=== PATIENT | female | born 1955 | race Caucasian/White ===

== ENCOUNTER 2021-05-17 07:05 | Outpatient (CLI) | payer BC, SELFPAY ==
--- NOTE | ~2021-05-17 | MM_ITS ---
EXAMINATION: MM screening [place] [facility] BI w jorge l HISTORY: Screening mammogram TECHNIQUE: Craniocaudal and mediolateral oblique 3-D tomosynthesis images were obtained and synthetic 2-D images were generated. CAD analysis was submitted and interpreted. COMPARISON: 09/07/2018, 08/11/2017 BREAST PARENCHYMAL COMPOSITION: The breasts are almost entirely fatty. FINDINGS: Stable bilateral benign breast masses are again noted. There is no evidence of suspicious m ass, calcification, or architectural distortion to suggest malignancy in either breast. There has bee n no suspicious interval change. IMPRESSION: 1. No mammographic evidence of malignancy. 2. Recommend routine screening mammography in one year. BI-RADS Category 2: Benign finding(s). Reviewed, dictated and finalized at location A.
== END 2021-05-17 07:06 | disposition home or self-care (01) ==
PROVIDERS: PCP Family Medicine; Visit Provider Family Medicine
DX: Z12.31 Encounter for screening mammogram for malignant neoplasm of breast (principal)
CPT/HCPCS: 77063; 77067

== ENCOUNTER 2022-05-20 07:45 | Outpatient (CLI) | payer BC, SELFPAY ==
--- NOTE | 2022-05-28 14:07 | WPDHOMESLEEP ---
Sleep Study - Home Unattended Date of Study: 05/20/22 Ordering Provider: Sri Aleman DO Interpreting Provider: Shireen Yeung MD Home Sleep Study Type: Apnea Link Air Height: 1.57 m Weight: 108.862 kg Body Mass Index: 43.9 Neck Circumference (inches): 18.5 Wittmann: 18 Reason for Sleep Study Non-restorative sleep, excessive daytime fatigue Sleep History Cody Randall is a 66-year-old female who has had years of non-restorative sleep with daily fatigue. She has difficulty getting to sleep as well as staying asleep. She wakes up throughout the night. She does not have trouble sleeping with a cold or wake up gasping for breath at night. She does not have breathing problems at night other than snoring. She does not sweat excessively at night or notice her heart pounding or beating irregularly at night. She frequently falls asleep during the day but never involuntarily or while driving. She does not have loss of muscle tone with strong emotion. She frequently has daytime difficulties due to excessive sleepiness. She does not feel paralyzed on waking or falling asleep nor does she have vivid dreamlike scenes upon awakening or falling asleep. She does not feel afraid to go to sleep. She rarely has nightmares. She rarely remembers her dreams. She occasionally has racing thoughts. She rarely feels sad or depressed. She occasionally has anxiety. She frequently has muscular tension. She does not notice parts of her body jerking. She does not kick at night. She frequently has crawling and aching feelings in her legs and leg pain at night. She does not have morning jaw pain. She does not grind her teeth during sleep. She denies having pain during the day or being awakened by pain at night. She does not wake up feeling stiff in the morning with sore achy muscles or pain in the neck and spine. She has hypertension, diabetes and hyperlipidemia. Normal bedtime is 10:00 p.m. falling asleep within 20 to 30 minutes, typically waking 2-3 times at night to urinate, and returning to sleep within 5 - 10 minutes. Her wake-up time varies. On the weekends, bedtime is 11:00 p.m. and she wakes at 7:00 a.m.. She estimates getting between 6 and 7 hours of sleep normally. She does work some split shifts. She does not take naps in the afternoon or evening. A short nap lasting 10 or 15 minutes is not refreshing. She is usually drowsy in the morning on waking. She feels better in the morning compared to other times of day. Habits: Quit tobacco 35 years ago. No caffeine, alcohol or recreational drugs. [facility] Past Medical History Medical History (Updated 05/28/22 @ 14:15 by Shireen Yeung MD) Arthritis of hand, left, degenerative Dupuytren's contracture of hand Essential (primary) hypertension Mixed hyperglyceridemia Trigger finger, left middle finger Type 2 diabetes mellitus with complication, without long-term current use of insulin Surgical History Surgical History H/O section 1989 Family History Family History Father Family history of cardiovascular disease Other Family history of malignant neoplasm Social History Social History Smoking status: Former smoker Smoking end date: 08/16/94 Alcohol intake: current Substance use type: does not use Gender identity (if verbalized by the patient): Female Medications Home Medications Medication Instructions Recorded Confirmed Type atorvastatin 40 mg tablet 20 mg PO DAILY #30 tabs 11/04/21 05/12/22 Rx losartan 100 mg tablet 100 mg PO DAILY #90 tabs 05/03/22 05/12/22 Rx metformin 500 mg tablet 500 mg PO BIDWMEAL #180 tabs 05/03/22 05/12/22 Rx Sleep Procedure This test was performed using 4 channel monitoring including respiratory effort channel, snoring channel, heart rate haji
[2022-05-28 14:20] VITALS: BMI 43.9
== END 2022-05-21 13:41 | disposition home or self-care (01) ==
PROVIDERS: PCP Family Medicine; Visit Provider Family Medicine
DX: G47.33 Obstructive sleep apnea (adult) (pediatric) (principal); G47.10 Hypersomnia, unspecified; Z68.41 Body mass index [BMI] 40.0-44.9, adult
CPT/HCPCS: 95806

== ENCOUNTER → 2022-06-09 11:26 | Outpatient (CLI) | payer BC, SELFPAY ==
--- NOTE | ~2022-06-09 | XR_ITS ---
XR chest 2V 06/09/2022 11:38 Indication: Idiopathic sleep disorder Procedure: 2 view chest Comparison: No prior studies for comparison. Findings: Heart size is normal. No focal air space disease, pulmonary edema, pleural effusion or susp ected pneumothorax. No acute osseous abnormality. Impression: 1: No acute cardiopulmonary disease. Reviewed, dictated and finalized at location B. Impression: 1: No acute cardiopulmonary disease.
== END ==
PROVIDERS: PCP Family Medicine; Visit Provider Family Medicine
DX: G47.34 Idiopathic sleep related nonobstructive alveolar hypoventilation (principal)
CPT/HCPCS: 71046

== ENCOUNTER 2022-06-17 14:28 | Outpatient (CLI) | payer BC, SELFPAY ==
--- NOTE | 2022-06-18 09:41 | WPDPFTINT ---
PFT Procedure Performed PFT Procedure Performed Spirometry with Pre/Post Bronchodilator Plethysmography (Lung Vol) Diffusing Cap (DLCO) Flow Vol Loop PFT Interpretation Lung volumes were measured with the body plethysmography method. The diminished across the board lung volumes are indicative of restrictive respiratory disease. The normal residual volume in this setting may indicate underlying neuromuscular weakness. Clinical correlation advised. Spirometry showed diminished expiratory flow rates and a normal FEV1 to FVC ratio of 80%, also consistent with a restrictive respiratory disease. Following administration of a bronchodilator there was no significant increase in the expiratory flow rates. Lung diffusion capacity is borderline normal at 71% predicted. The flow volume loop is consistent with restrictive respiratory disease. Impression: Moderate restrictive respiratory disease. Borderline normal lung diffusion capacity.
== END 2022-06-17 14:29 | disposition home or self-care (01) ==
LOC: ANHPFT 14:31
PROVIDERS: PCP Family Medicine; Visit Provider Family Medicine
DX: R06.00 Dyspnea, unspecified (principal); R94.2 Abnormal results of pulmonary function studies
CPT/HCPCS: 94060; 94726; 94729

== ENCOUNTER → 2022-07-02 08:16 | Outpatient (CLI) | payer BC, SELFPAY ==
--- NOTE | ~2022-07-02 | CT_ITS ---
EXAMINATION: CT diagnostic chest wo con DATE: 07/02/2022 08:31 INDICATION: Severe nocturnal hypoxemia. Abnormal pulmonary function tests, restrictive lung disease TECHNIQUE: Computed tomography (CT) of the chest was performed without intravenous contrast. Automate d exposure control and iterative reconstruction technique were employed. Exam dose: 616.69 mGy-cm to meseret exam DLP. COMPARISON: 06/09/2022 2 view chest FINDINGS: There are occasional nonspecific scattered bilateral small focal groundglass infiltrates in the lungs. Consider mild pneumonia or atypical infection or inflammatory process. No hilar or mediastinal mass lesion or lymphadenopathy. Normal heart size. No pericardial effusion or pleural effusion. Thoracic aortic calcification. Small sliding hiatal hernia. Normal morphology of the adrenal glands. Diffuse idiopathic skeletal hyperostosis of the thoracic spine. No suspicious osteolytic or osteoblas tic lesions are noted. IMPRESSION: Scattered bilateral small focal nonspecific groundglass infiltrates Reviewed, dictated and finalized at Location A. Reviewed, dictated and finalized at location B. [employer]UTTER OPERATOR IMPRESSION: Scattered bilateral small focal nonspecific groundglass infiltrate s
== END ==
PROVIDERS: PCP Family Medicine; Visit Provider Family Medicine
DX: R09.02 Hypoxemia (principal); R94.2 Abnormal results of pulmonary function studies; J98.4 Other disorders of lung; R91.8 Other nonspecific abnormal finding of lung field
CPT/HCPCS: 71250

== ENCOUNTER 2022-07-07 08:09 | Outpatient (CLI) | payer BC, SELFPAY ==
--- NOTE | 2022-07-28 16:07 | WPDSLEEPSTUD ---
Sleep Study Date of Study: 07/07/22 Ordering Provider: Sri Aleman DO Interpreting Physician: Sri Aleman DO Sleep Study Type: BiPAP Titration Height: 1.57 m Weight: 108.862 kg Body Mass Index: 43.9 Neck Circumference (inches): 19 Verdi: 15 Reason for Sleep Study The patient had an ApneaLink on 05/20/2022 that showed an apnea-hypopnea index of 14.8 with desaturation down to 61% with snoring. Sleep History Fide Randall is a? 66-year-old female who has had years of non-restorative sleep with daily fatigue.? She has difficulty getting to sleep as well as staying asleep.? She wakes up throughout the night.? She does not have trouble sleeping with a cold or wake up gasping for breath at night.? She does not have breathing problems at night other than snoring.? She does not sweat excessively at night or notice her heart pounding or beating irregularly at night.? She frequently falls asleep during the day but never involuntarily or while driving.? She does not have loss of muscle tone with strong emotion.? She frequently has daytime difficulties due to excessive sleepiness.? She does not feel paralyzed on waking or falling asleep nor does she have vivid dreamlike scenes upon awakening or falling asleep.? She does not feel afraid to go to sleep.? She rarely has nightmares.? She rarely remembers her dreams.? She occasionally has racing thoughts.? She rarely feels sad or depressed.? She occasionally has anxiety.? She frequently has muscular tension.? She does not notice parts of her body jerking.? She does not kick at night.? She frequently has crawling and aching feelings in her legs and leg pain at night.? She does not have morning jaw pain.? She does not grind her teeth during sleep.? She denies having pain during the day or being awakened by pain at night.? She does not wake up feeling stiff in the morning with sore achy muscles or pain in the neck and spine. She has hypertension, diabetes and hyperlipidemia. Normal bedtime is 10:00 p.m. falling asleep within 20 to 30 minutes, typically waking 2-3 times at night to urinate, and returning to sleep within 5 - 10 minutes.? Her wake-up time varies.? On the weekends, bedtime is 11:00 p.m. and she wakes at 7:00 a.m..? She estimates getting between 6 and 7 hours of sleep normally.? She does work some split shifts.? She does not take naps in the afternoon or evening.? A short nap lasting 10 or 15 minutes is not refreshing.? She is usually drowsy in the morning on waking.? She feels better in the morning compared to other times of day. Habits:?Quit tobacco 35 years ago.? No caffeine, alcohol or recreational drugs. [facility] Past Medical History Medical History Arthritis of hand, left, degenerative Dupuytren's contracture of hand Essential (primary) hypertension Mixed hyperglyceridemia Trigger finger, left middle finger Type 2 diabetes mellitus with complication, without long-term current use of insulin Surgical History Surgical History H/O section 1989 Family History Family History Father Family history of cardiovascular disease Other Family history of malignant neoplasm Social History Social History Smoking status: Former smoker Smoking end date: 08/16/94 Alcohol intake: current Substance use type: does not use Gender identity (if verbalized by the patient): Female Medications Home Medications Medication Instructions Recorded Confirmed Type atorvastatin 40 mg tablet 20 mg PO DAILY #30 tabs 11/04/21 05/12/22 Rx losartan 100 mg tablet 100 mg PO DAILY #90 tabs 05/03/22 05/12/22 Rx metformin 500 mg tablet 500 mg PO BIDWMEAL #180 tabs 05/03/22 05/12/22 Rx ergocalciferol (vitamin D2) 1,250 1,250 mcg PO WEEKLY #13 caps 06/22/22 Rx
[2022-07-28 17:39] VITALS: BMI 43.9
== END 2022-07-08 06:15 | disposition home or self-care (01) ==
LOC: ANHCSM 08:10
PROVIDERS: PCP Family Medicine; Visit Provider Family Medicine
DX: G47.33 Obstructive sleep apnea (adult) (pediatric) (principal); I10 Essential (primary) hypertension; E78.3 Hyperchylomicronemia; E11.9 Type 2 diabetes mellitus without complications; Z87.891 Personal history of nicotine dependence
CPT/HCPCS: 95811

== ENCOUNTER 2022-08-05 08:09 | Outpatient (CLI) | payer BC, SELFPAY ==
--- NOTE | 2022-08-05 13:52 | WPDSIXMINUTE ---
Six Minute Walk Procedure Procedure Performed Pulmonary Stress Test (6 min walk) Six Minute Walk Six Minute Walk: This is a 6 minute walk test. The test was performed and interpreted in accordance with the 2014 ERS/ATS task force guidelines. Findings: The patient's resting room air oxygen saturation measured by pulse oximetry was 95% and heart rate was 61 bpm. Patient ambulated for 305 meters and oxygen saturation remained 91 to 93%. Heart rate at the end of the study was 98 bpm. The patient did not qualify for supplemental oxygen at rest or with ambulation. There are no prior studies for comparison.
== END 2022-08-05 08:10 | disposition home or self-care (01) ==
LOC: ANHPFT 08:11
PROVIDERS: PCP Family Medicine; Visit Provider Family Medicine
DX: R06.09 Other forms of dyspnea (principal); J98.4 Other disorders of lung
CPT/HCPCS: 94618

== ENCOUNTER 2022-10-05 08:35 | Outpatient (CLI) | payer OTHER, SELFPAY ==
--- NOTE | 2022-10-05 08:39 | EST_ITS ---
Patient Info Name: Fide Randall Age: 67 years : 1955 Gender: Female Ht: 62 in Wt: 240 lbs BSA: 2.25 m2 HR: 62 bpm BP: 146 / 61 mmHg Heart Rhythm: Sinus Rhythm Exam Date: 10/05/2022 8:53 AM Exam Location: [facility] Stress Patient Status: Outpatient Admit Date: 10/05/2022 Staff Ordering Physician: Sri Aleman DO Attending Provider: Sri Aleman DO Exercise Technologist: Magali Funez CT Exercise Physician: Luiz Metzger DO Exam Type: CA stress test treadmill Study Info Indications R06.09 - Other forms of dyspnea A treadmill exercise stress test was performed. Summary 1. 1. Negative Juan Jose exercise stress test for ischemic ST changes by ECG criteria. 2. 2. Reduced functional capacity, achieving 6.8 METs of workload. 3. 3. Baseline hypertension with hypertensive response to exercise. 4. 4. Appropriate HR response to exercise. 5. 5. Appropriate HR recovery at 1 minute post exercise. 6. 6. No imaging with stress testing. 7. 7. Patient informed of the above results. Protocol: Juan Jose Stress ECG Details Stage: REST Duration (min): 1 min : 4 sec Speed (mph): 0.0 Grade (%): 0 HR (bpm): 64 SBP (mmHg): 146 DBP (mmHg): 61 METS: --- Stage: REST Duration (min): 6 min : 26 sec Speed (mph): 0.0 Grade (%): 0 HR (bpm): 69 SBP (mmHg): 146 DBP (mmHg): 61 METS: --- Stage: STAGE 1 Duration (min): 1 min : 0 sec Speed (mph): 1.7 Grade (%): 10 HR (bpm): 103 SBP (mmHg): 146 DBP (mmHg): 61 METS: --- Stage: STAGE 1 Duration (min): 2 min : 0 sec Speed (mph): 1.7 Grade (%): 10 HR (bpm): 121 SBP (mmHg): 146 DBP (mmHg): 61 METS: --- Stage: STAGE 1 Duration (min): 3 min : 0 sec Speed (mph): 1.7 Grade (%): 10 HR (bpm): 127 SBP (mmHg): 198 DBP (mmHg): 73 METS: --- Stage: STAGE 2 Duration (min): 1 min : 0 sec Speed (mph): 2.5 Grade (%): 12 HR (bpm): 143 SBP (mmHg): 198 DBP (mmHg): 73 METS: --- Stage: STAGE 2 Duration (min): 1 min : 14 sec Speed (mph): 2.5 Grade (%): 12 HR (bpm): 147 SBP (mmHg): 198 DBP (mmHg): 73 METS: --- Stage: RECOVERY Duration (min): 0 min : 45 sec Speed (mph): 0.0 Grade (%): 0 HR (bpm): 137 SBP (mmHg): 215 DBP (mmHg): 57 METS: --- Stage: RECOVERY Duration (min): 1 min : 45 sec Speed (mph): 0.0 Grade (%): 0 HR (bpm): 104 SBP (mmHg): 215 DBP (mmHg): 57 METS: --- Stage: RECOVERY Duration (min): 2 min : 45 sec Speed (mph): 0.0 Grade (%): 0 HR (bpm): 90 SBP (mmHg): 215 DBP (mmHg): 57 METS: --- Stage: RECOVERY Duration (min): 3 min : 14 sec Speed (mph): 0.0 Grade (%): 0 HR (bpm): 87 SBP (mmHg): 181 DBP (mmHg): 65 METS: --- Rest HR: 69 bpm Peak HR: 148 bpm Rest Sys BP: 146 mmHg Peak Sys BP: 215 mmHg Max Pred HR: 155 bpm % Max Pred HR: 95 % Target
== END 2022-10-05 08:36 | disposition home or self-care (01) ==
LOC: ANHCARD 08:36
PROVIDERS: PCP Family Medicine; Visit Provider Family Medicine
DX: R06.00 Dyspnea, unspecified (principal)
CPT/HCPCS: 93017

== ENCOUNTER 2023-04-26 00:49 | Day surgery (SDC) | payer OTHER, SELFPAY ==
[2023-03-17 13:42] VITALS: BMI 41.1
[2023-04-12 15:26] VITALS: BMI 41.1
--- NOTE | 2023-04-26 08:24 | WPDANESEPPF ---
Anes - Initial Pre Proc Eval Procedure: Operation Date: 04/26/23 11:30 Proposed Procedures p Colonoscopy - Darryl Arenas MD Date/Time: 04/26/23 08:24 Surgeon: Darryl Arenas MD Pre Op Diagnosis: neoplasia screening Patient Data Age: 67 Gender: F Height: 1.57 m Weight: 102 kg Allergies Allergy/AdvReac Type Severity Reaction Status Date / Time Sulfa (Sulfonamide Allergy Severe RASH Verified 04/26/23 10:05 Antibiotics) lisinopril Allergy Unknown cough Verified 04/26/23 10:05 potassium iodide Allergy Unknown cough Verified 04/26/23 10:05 sulfamethizole Allergy Unknown Skin Verified 04/26/23 10:05 Reaction sulfite Allergy Unknown rash Verified 04/26/23 10:05 Home Medications Medication Instructions Recorded Confirmed Type metformin 500 mg tablet 500 mg PO BIDWMEAL #180 tabs 11/06/22 04/26/23 Rx atorvastatin 40 mg tablet 20 mg PO DAILY #45 tabs 12/22/22 04/26/23 Rx nirmatrelvir 300 mg (150 mg See Rx Instructions PO .COMPLEX 04/19/23 04/26/23 Rx x2)-ritonavir 100 mg tablet,dose #30 ea pack (Paxlovid) losartan 100 mg tablet 100 mg PO DAILY #90 tabs 04/23/23 04/26/23 Rx Patient hx anesthesia problems: none Family hx anesthesia problems: none Results Review: All pre-operative results and documents have been reviewed as part of the pre-operative evaluation. [facility] Past Medical History Medical History (Updated 04/26/23 @ 10:16 by Darryl Arenas MD) Arthritis of hand, left, degenerative Dupuytren's contracture of hand Essential (primary) hypertension Mixed hyperglyceridemia YEN (obstructive sleep apnea) Trigger finger, left middle finger Type 2 diabetes mellitus with complication, without long-term current use of insulin Surgical History Surgical History H/O section 1989 Family History Family History Father Family history of cardiovascular disease Other Family history of malignant neoplasm Social History Social History Smoking packs per day: 1 Smoking cigarettes per day: 20.0 Years smoked: 20 Smoking pack-years: 20.00 Smoking status: Former smoker Smoking end date: 08/16/94 Alcohol intake: never Substance use: never Substance use type: does not use Lack of Transportation: No Lack of Food: Never True Current Housing: I Have Housing Concerned About Future Housing: No Difficulty Paying Gas/Electric Bills: No Difficulty Paying for Meds: No Currently Unemployed: No Education: High School Diploma/GED Difficulty w/ Childcare or Family Care: No Living arrangements: with family Occupation/Education: occupation Gender identity (if verbalized by the patient): Female Spiritual care concerns: No Anes - Eval Final PreProcedure Day of Procedure 04/26/23 08:24 Patient weight: morbidly obese Heart: regular rate and rhythm Lungs: clear to auscultation Airway: Mallampati scale class II Neurological: alert and oriented Last oral intake: >/= 8 hours ASA classification: III Emergent: no Anesthetic plan: proceed Anesthesia type and monitoring: general GIVS and standard monitoring Results Review: All pre-operative results and documents have been reviewed as part of the pre-operative evaluation. Informed Consent: The patient's anesthetic plan and its attendant risks and benefits were discussed with the patient/family/POA. Questions were solicited and answers provided to the satisfaction of the patient/family/POA.
[2023-04-26 10:07] VITALS: BP 139/64; PULSE 74; RESP 17; TEMP 36.2; O2SAT 94; BMI 42.5
--- NOTE | 2023-04-26 10:15 | PM.HPGS ---
History of Present Illness History of Present Illness Consent: Risks, benefits, and alternatives have been discussed and questions answered. Patient agrees to proceed with procedure. Chief complaint: neoplasia screening Narrative: Fide Randall is a 67 year old female Presents for screening colonoscopy. Patient's current weight appetite and bowel movements are normal. Patient denies abdominal pain. She has had no bleeding. Family history noncontributory. Previous colonoscopy 2018 revealed a benign inflammatory polyp not felt to have cancer risk. Review of Systems Review of Systems: Review of systems noncontributory. [facility] Past Medical History Medical History (Updated 04/26/23 @ 10:16 by Darryl Arenas MD) Arthritis of hand, left, degenerative Dupuytren's contracture of hand Essential (primary) hypertension Mixed hyperglyceridemia YEN (obstructive sleep apnea) Trigger finger, left middle finger Type 2 diabetes mellitus with complication, without long-term current use of insulin Surgical History Surgical History H/O section 1989 Family History Family History Father Family history of cardiovascular disease Other Family history of malignant neoplasm Social History Social History Smoking packs per day: 1 Smoking cigarettes per day: 20.0 Years smoked: 20 Smoking pack-years: 20.00 Smoking status: Former smoker Smoking end date: 08/16/94 Alcohol intake: never Substance use: never Substance use type: does not use Lack of Transportation: No Lack of Food: Never True Current Housing: I Have Housing Concerned About Future Housing: No Difficulty Paying Gas/Electric Bills: No Difficulty Paying for Meds: No Currently Unemployed: No Education: High School Diploma/GED Difficulty w/ Childcare or Family Care: No Living arrangements: with family Occupation/Education: occupation Gender identity (if verbalized by the patient): Female Spiritual care concerns: No Meds Home Medications and Allergies Home Medications Medication Instructions Recorded Confirmed Type metformin 500 mg tablet 500 mg PO BIDWMEAL #180 tabs 11/06/22 04/26/23 Rx atorvastatin 40 mg tablet 20 mg PO DAILY #45 tabs 12/22/22 04/26/23 Rx nirmatrelvir 300 mg (150 mg See Rx Instructions PO .COMPLEX 04/19/23 04/26/23 Rx x2)-ritonavir 100 mg tablet,dose #30 ea pack (Paxlovid) losartan 100 mg tablet 100 mg PO DAILY #90 tabs 04/23/23 04/26/23 Rx Allergies Allergy/AdvReac Type Severity Reaction Status Date / Time Sulfa (Sulfonamide Allergy Severe RASH Verified 04/26/23 10:05 Antibiotics) lisinopril Allergy Unknown cough Verified 04/26/23 10:05 potassium iodide Allergy Unknown cough Verified 04/26/23 10:05 sulfamethizole Allergy Unknown Skin Verified 04/26/23 10:05 Reaction sulfite Allergy Unknown rash Verified 04/26/23 10:05 Exam Narrative: Physical exam reveals patient to be alert. Vital signs stable. HEENT exam is unremarkable. Patient is anicteric. Lungs are clear to auscultation and percussion. Heart is without murmur or extra sounds. Abdomen bowel sounds are present soft nontender with no organomegaly. Digital external rectal exam is normal. Assessment and Plan Assessment and plan (1) Encounter for screening colonoscopy: Code(s): Z12.11 - Encounter for screening for malignant neoplasm of colon Status: Acute Assessment and Plan: Patient presents today for screening colonoscopy. She appears to be at average risk for colon polyps. Further recommendations may be given after endoscopy.
[2023-04-26 10:28] LABS: Glucose Point of Care 126 mg/dl (65-105)
[2023-04-26] MEDS: LACTATED RINGERS 1,000 ML 150 ML IV CONT (10:45)
[2023-04-26 11:46] VITALS: BP 115/44; PULSE 69; RESP 24; O2SAT 94
[2023-04-26 11:56] VITALS: BP 117/48; PULSE 61; RESP 25; O2SAT 94
[2023-04-26 12:06] VITALS: BP 131/48; PULSE 59; RESP 20; O2SAT 97
== END 2023-04-26 12:14 | disposition home or self-care (01) ==
PROVIDERS: PCP Family Medicine; Visit Provider Internal Medicine Gastroenterology
PROC: 0DJD8ZZ Inspection of Lower Intestinal Tract, Via Natural or Artificial Opening Endoscopic (ICD-10-PCS; CPT 45378; principal; 2023-04-26 11:30)
DX: Z12.11 Encounter for screening for malignant neoplasm of colon (principal); K64.8 Other hemorrhoids; K57.30 Diverticulosis of large intestine without perforation or abscess without bleeding; I10 Essential (primary) hypertension; E78.2 Mixed hyperlipidemia; G47.33 Obstructive sleep apnea (adult) (pediatric); E11.8 Type 2 diabetes mellitus with unspecified complications; Z87.891 Personal history of nicotine dependence; Z79.84 Long term (current) use of oral hypoglycemic drugs; E66.01 Morbid (severe) obesity due to excess calories; Z68.41 Body mass index [BMI] 40.0-44.9, adult
CPT/HCPCS: 45378; 82948; J2704; J7120

== ENCOUNTER 2023-09-09 08:10 | Emergency (ER) | payer OTHER, SELFPAY ==
--- NOTE | 2023-09-09 08:13 | ED.FEMALEGU ---
HPI - Female Genitourinary General Chief complaint: Urogenital-Female Stated complaint: Uti symptoms Time Seen by Provider: 09/09/23 08:36 Source: patient, RN notes reviewed and old records reviewed Mode of arrival: ambulatory Limitations: no limitations History of Present Illness HPI Narrative: 67-year-old female presents to the [facility] with complaints of frequency, urgency, pain and burning that started with urination at 5:00 a.m. this morning. On Wednesday she did get Botox injected into her bladder by a urologist. Was given 1 pill of an antibiotic. Onset (ago): hour(s) (3) Related Data Allergies Allergy/AdvReac Type Severity Reaction Status Date / Time Sulfa (Sulfonamide Allergy Severe RASH Verified 04/26/23 10:05 Antibiotics) lisinopril Allergy Unknown cough Verified 04/26/23 10:05 potassium iodide Allergy Unknown cough Verified 04/26/23 10:05 sulfamethizole Allergy Unknown Skin Verified 04/26/23 10:05 Reaction sulfite Allergy Unknown rash Verified 04/26/23 10:05 Review of Systems Review of Systems: All systems reviewed & are unremarkable except as noted in HPI and below Constitutional: Constitutional: Reports no additional constitutional complaints Eyes: Eyes: Reports no additional eye complaints ENT: Reports system reviewed and no additional complaints, except as documented Cardiovascular: Cardiovascular: Reports no additional cardiovascular complaints, Denies chest pain and Denies dyspnea Respiratory: Respiratory: Reports no additional respiratory complaints, Denies chest congestion, Denies cough and Denies dyspnea Gastrointestinal: Gastrointestinal: Reports no additional gastrointestinal complaints, Denies abdominal pain, Denies nausea and Denies vomiting Genitourinary: Genitourinary: Reports as per HPI Musculoskeletal: Musculoskeletal: Reports no additional musculoskeletal complaints Integumentary/Breasts: Skin/Breast: Reports system reviewed and no additional complaints, except as docu Neurologic: Reports system reviewed and no additional complaints, except as documented Psychiatric: Psychiatric: Reports no additional psychiatric complaints Allergic/Immunologic: Allergic/Immunologic: Reports no additional allergic/immunologic complaints [facility] Past Medical History Medical History (Updated 09/09/23 @ 08:48 by Mar Pitts APRN) Arthritis of hand, left, degenerative Dupuytren's contracture of hand Essential (primary) hypertension Mixed hyperglyceridemia YEN (obstructive sleep apnea) Other hyperlipidemia Trigger finger, left middle finger Type 2 diabetes mellitus with complication, without long-term current use of insulin Surgical History Surgical History H/O section 1989 Family History Family History Father Family history of cardiovascular disease Other Family history of malignant neoplasm Social History Social History Smoking packs per day: 1 Smoking cigarettes per day: 20.0 Years smoked: 20 Smoking pack-years: 20.00 Smoking status: Former smoker Smoking end date: 08/16/94 Alcohol intake: never Substance use: never Substance use type: does not use Lack of Transportation: No Lack of Food: Never True Current Housing: I Have Housing Concerned About Future Housing: No Difficulty Paying Gas/Electric Bills: No Difficulty Paying for Meds: No Currently Unemployed: No Education: High School Diploma/GED Difficulty w/ Childcare or Family Care: No Living arrangements: with family Occupation/Education: occupation Gender identity (if verbalized by the patient): Female Spiritual care concerns: No Comments At the time of my signature, I reviewed and agree with the nursing past medical, surgical, social, and family history. There is no relevant family history pertin
[2023-09-09 08:24] VITALS: BP 150/73; PULSE 79; RESP 16; TEMP 36.4; O2SAT 95
[2023-09-09 08:25] VITALS: BP 150/73; PULSE 79; RESP 16; TEMP 36.4; O2SAT 95
== END 2023-09-09 08:55 | disposition home or self-care (01) ==
PROVIDERS: Emergency Provider Nurse Practitioner; PCP Family Medicine
DX: N30.01 Acute cystitis with hematuria (principal); E11.9 Type 2 diabetes mellitus without complications; E78.5 Hyperlipidemia, unspecified; I10 Essential (primary) hypertension; Z87.891 Personal history of nicotine dependence
CPT/HCPCS: 81003; 87086; 99213; G0463

== ENCOUNTER 2023-10-11 17:44 | Emergency (ER) | payer OTHER, SELFPAY ==
[2023-10-11 17:52] VITALS: BP 140/87; PULSE 67; RESP 16; TEMP 36.3; O2SAT 96
--- NOTE | 2023-10-11 18:41 | ED.FEMALEGU ---
HPI - Female Genitourinary General Chief complaint: Urogenital-Female Stated complaint: Uti Symptoms Time Seen by Provider: 10/11/23 18:20 Source: patient, RN notes reviewed and old records reviewed Mode of arrival: ambulatory Limitations: no limitations History of Present Illness HPI Narrative: Patient presents today complaining of frequency and lower abdominal pressure since last night. Denies dysuria, hematuria. Reports frequent UTIs. Patient gets Botox for overactive bladder. She has been taking some cranberry pills. Related Data Allergies Allergy/AdvReac Type Severity Reaction Status Date / Time Sulfa (Sulfonamide Allergy Severe RASH Verified 10/11/23 17:54 Antibiotics) lisinopril Allergy Unknown cough Verified 10/11/23 17:54 potassium iodide Allergy Unknown cough Verified 10/11/23 17:54 sulfamethizole Allergy Unknown Skin Verified 10/11/23 17:54 Reaction sulfite Allergy Unknown rash Verified 10/11/23 17:54 Review of Systems Review of Systems: CONSTITUTIONAL: Denies body aches, fever, chills, or sweats. EYES: Denies visual changes, redness, or discharge. ENT: Denies rhinorrhea, congestion, sore throat, or otalgia. CARDIOVASCULAR: Denies chest pain, palpitations, or edema. RESPIRATORY: Denies cough or dyspnea. GASTROINTESTINAL: Denies abdominal pain, nausea, vomiting, or diarrhea. GENITOURINARY: Denies dysuria or hematuria.+ urinary frequency and lower abdominal pressure SKIN: Denies rash, itching, or wounds. MUSCULOSKELETAL: Denies back pain, joint pain, or myalgia. NEUROLOGIC: Denies headache, numbness, tingling, or weakness. PSYCH: Denies depression or anxiety. [facility] Past Medical History Medical History Arthritis of hand, left, degenerative Dupuytren's contracture of hand Essential (primary) hypertension Mixed hyperglyceridemia YEN (obstructive sleep apnea) Other hyperlipidemia Trigger finger, left middle finger Type 2 diabetes mellitus with complication, without long-term current use of insulin Surgical History Surgical History H/O section 1989 Family History Family History Father Family history of cardiovascular disease Other Family history of malignant neoplasm Social History Social History Smoking packs per day: 1 Smoking cigarettes per day: 20.0 Years smoked: 20 Smoking pack-years: 20.00 Smoking status: Former smoker Smoking end date: 08/16/94 Alcohol intake: never Substance use: never Substance use type: does not use Do You Feel Safe in your Home?: Yes Lack of Transportation: No Lack of Food: Never True Current Housing: I Have Housing Concerned About Future Housing: No Difficulty Paying Gas/Electric Bills: No Difficulty Paying for Meds: No Currently Unemployed: No Education: High School Diploma/GED Difficulty w/ Childcare or Family Care: No Living arrangements: with family Occupation/Education: occupation Gender identity (if verbalized by the patient): Female Spiritual care concerns: No Comments At time of signature, I have reviewed and agree with nursing past medical, surgical, social and family history unless otherwise noted. Please see nursing chart for further information. There is no relevant family history pertinent to the presenting complaint Exam Narrative: GENERAL: Well-appearing, well-nourished, and in no acute distress. HEAD: Normocephalic, atraumatic. EYES: EOMI. No redness or drainage. Conjunctivae normal. ENT: Mucous membranes pink and moist. NECK: Normal AROM. CHEST: No respiratory distress. Clear to auscultation. HEART: Regular rate and rhythm. No murmur appreciated. Normal peripheral pulses. ABDOMEN: Soft, nontender, nondistended, normal active bowel
== END 2023-10-11 18:48 | disposition home or self-care (01) ==
PROVIDERS: Emergency Provider Nurse Practitioner; PCP Family Medicine
DX: N30.01 Acute cystitis with hematuria (principal); B96.89 Other specified bacterial agents as the cause of diseases classified elsewhere; I10 Essential (primary) hypertension; E78.3 Hyperchylomicronemia; E78.49 Other hyperlipidemia; E11.9 Type 2 diabetes mellitus without complications; Z79.84 Long term (current) use of oral hypoglycemic drugs; M19.042 Primary osteoarthritis, left hand; Z87.891 Personal history of nicotine dependence
CPT/HCPCS: 81003; 87077; 87086; 87186; 99213; G0463

== ENCOUNTER 2023-10-27 18:45 | Emergency (ER) | payer OTHER, SELFPAY ==
[2023-10-27 18:55] VITALS: BP 112/66; PULSE 76; RESP 18; TEMP 36.9; O2SAT 95
--- NOTE | 2023-10-27 19:15 | ED.GENADULT ---
HPI - General Adult General Chief complaint: Urogenital-Female Stated complaint: Urinary Problems Source: patient, RN notes reviewed and old records reviewed Mode of arrival: ambulatory Limitations: no limitations History of Present Illness HPI narrative: 68-year-old female presents to [facility] with complaints of urinary frequency, urinary urgency, constant urge to urinate, and dysuria that started this a.m.. Patient states gets frequent UTIs. Patient denies abdominal pain or back pain. Related Data Allergies Allergy/AdvReac Type Severity Reaction Status Date / Time Sulfa (Sulfonamide Allergy Severe RASH Verified 10/27/23 19:12 Antibiotics) lisinopril Allergy Unknown cough Verified 10/27/23 19:12 potassium iodide Allergy Unknown cough Verified 10/27/23 19:12 sulfamethizole Allergy Unknown Skin Verified 10/27/23 19:12 Reaction sulfite Allergy Unknown rash Verified 10/27/23 19:12 Review of Systems Constitutional: Constitutional: Reports no additional constitutional complaints, Denies body ache(s), Denies chills, Denies fatigue, Denies fever(s) and Denies headache(s) Eyes: Eyes: Reports no additional eye complaints and Denies blurry vision ENT: Reports system reviewed and no additional complaints, except as documented, Denies vertigo, Denies dizziness, Denies ear discharge, Denies otalgia, Denies facial pain, Denies headache(s), Denies nasal congestion, Denies nasal discharge, Denies sinus pain, Denies sinus pressure and Denies sore throat Cardiovascular: Cardiovascular: Reports no additional cardiovascular complaints, Denies chest pain, Denies chest pain at rest, Denies rapid heart rate and Denies dyspnea Respiratory: Respiratory: Reports no additional respiratory complaints, Denies chest congestion, Denies cough, Denies pain on inspiration, Denies pain with cough and Denies dyspnea Gastrointestinal: Gastrointestinal: Denies abdominal pain, Denies diarrhea, Denies nausea and Denies vomiting Genitourinary: Genitourinary: Reports nocturia, Reports dysuria, Denies flank pain and Reports urinary urgency Integumentary/Breasts: Skin/Breast: Denies rash Neurologic: Reports system reviewed and no additional complaints, except as documented, Denies vertigo, Denies dizziness and Denies headache(s) Endocrine: Endocrine: Denies fatigue PMFSH Past Medical History Medical History Arthritis of hand, left, degenerative Dupuytren's contracture of hand Essential (primary) hypertension Mixed hyperglyceridemia YEN (obstructive sleep apnea) Other hyperlipidemia Trigger finger, left middle finger Type 2 diabetes mellitus with complication, without long-term current use of insulin Surgical History Surgical History H/O section 1989 Family History Family History Father Family history of cardiovascular disease Other Family history of malignant neoplasm Social History Social History Smoking packs per day: 1 Smoking cigarettes per day: 20.0 Years smoked: 20 Smoking pack-years: 20.00 Smoking status: Former smoker Smoking end date: 08/16/94 Alcohol intake: never Substance use: never Substance use type: does not use Do You Feel Safe in your Home?: Yes Lack of Transportation: No Lack of Food: Never True Current Housing: I Have Housing Concerned About Future Housing: No Difficulty Paying Gas/Electric Bills: No Difficulty Paying for Meds: No Currently Unemployed: No Education: High School Diploma/GED Difficulty w/ Childcare or Family Care: No Living arrangements: with family Occupation/Education: occupation Gender identity (if verbalized by the patient): Female Spiritual care concerns: No Comments At the time of my signature, I reviewed and agre
== END 2023-10-27 19:23 | disposition home or self-care (01) ==
PROVIDERS: Emergency Provider Registered Nurse; PCP Family Medicine
DX: N30.90 Cystitis, unspecified without hematuria (principal); B96.20 Unspecified Escherichia coli [E. coli] as the cause of diseases classified elsewhere; Z87.891 Personal history of nicotine dependence; I10 Essential (primary) hypertension; E78.3 Hyperchylomicronemia; E78.49 Other hyperlipidemia; E11.9 Type 2 diabetes mellitus without complications; M19.042 Primary osteoarthritis, left hand
CPT/HCPCS: 81003; 87077; 87086; 87088; 87186; 99213; G0463

== ENCOUNTER 2024-03-01 07:30 | Outpatient (CLI) | payer OTHER, SELFPAY ==
--- NOTE | 2024-03-01 07:33 | ECHO_ITS ---
Patient Info Name: Fide Randall Age: 68 years : 1955 Gender: Female Ht: 62 in Wt: 220 lbs BSA: 2.14 m2 HR: 67 bpm BP: 140 / 81 mmHg Heart Rhythm: Sinus Rhythm Technical Quality: Fair Exam Date: 03/01/2024 7:40 AM Exam Location: Echo Lab Patient Status: Outpatient Admit Date: 03/01/2024 Staff Ordering Physician: Sri Aleman DO Waiter: Subha Barahona RDCS Attending Provider: Sri Aleman DO Referring Physician: Ash ALVARADO; Exam Type: CA echo doppler color flow Study Info Indications R01.1 - Cardiac murmur, unspecified Complete two-dimensional, color flow and Doppler transthoracic echocardiogram is performed. Summary 1. Complete two-dimensional, color flow and Doppler transthoracic echocardiogram is performed. 2. Left ventricular chamber dimension is normal. 3. Left ventricular systolic function is normal, estimated at 60-65%. 4. The left ventricular diastolic function is grade I diastolic dysfunction. 5. E/e' 12 is mildly elevated. 6. There is mild aortic valve sclerosis. 7. There is trace aortic valve regurgitation. 8. There is trace mitral valve regurgitation. 9. No pulmonary hypertension, estimated pulmonary arterial systolic pressure is 25 mmHg. 10. There is trace pulmonic regurgitation. Left Ventricle E/e' 12 is mildly elevated. Left ventricular chamber dimension is normal. Left ventricular systolic function is normal, estimated at 60-65%. The left ventricular diastolic function is grade I diastolic dysfunction. Right Ventricle Right ventricular systolic function is normal and with normal TAPSE 2.1 cm. Right ventricular chamber dimension is normal. Left Atria Left atrial chamber dimension is normal. Right Atria Right atrial chamber dimension is normal. Aortic Valve The aortic valve is trileaflet. There is mild aortic valve sclerosis. There is no aortic valve stenosis. There is trace aortic valve regurgitation. Pulmonic Valve There is trace pulmonic regurgitation. Mitral Valve There is no mitral valve stenosis. There is trace mitral valve regurgitation. Tricuspid Valve There is no tricuspid valve regurgitation. No pulmonary hypertension, estimated pulmonary arterial systolic pressure is 25 mmHg. Pericardium/Pleural There is no pericardial effusion. Inferior Vena Cava Normal inferior vena cava with >50% collapse upon inspiration consistent with normal right atrial pressure, 5 mmHg. Aorta The aortic root size at the sinus of Valsalva is normal. Left Ventricular Outflow Tract Name Value Normal LVOT 2D LVOT Diameter 2.0 cm LVOT Doppler LVOT Peak Gradient 4 mmHg LVOT Mean Gradient 2 mmHg LVOT VTI 20 cm LVOT VTI/AV VTI Ratio 0.6 LVOT Stroke Volume 61 ml LVOT CO 3.7 l/min LVOT CI 1.7 l/min/m2 Pulmonic Valve Name Value Normal ERICKA Joseph
== END 2024-03-01 07:31 | disposition home or self-care (01) ==
PROVIDERS: PCP Family Medicine; Visit Provider Family Medicine
DX: R01.1 Cardiac murmur, unspecified (principal); I51.89 Other ill-defined heart diseases; I35.8 Other nonrheumatic aortic valve disorders
CPT/HCPCS: 93306

== ENCOUNTER 2024-03-14 14:08 | Outpatient (CLI) | payer OTHER, SELFPAY ==
--- NOTE | ~2024-03-14 | XR_ITS ---
XR wrist RT 2V Ordering provider: Kaela Raya NP History: . M25.531 - Pain in right wrist . Comparison: None. FINDINGS: BONES: No acute fracture or dislocation. No definite scaphoid fracture. Cystic changes in the scapho id bone. JOINT SPACES: Normal. SOFT TISSUES: Normal. IMPRESSION: No acute osseous abnormality right wrist. Reviewed, dictated and finalized at location A.
== END 2024-03-14 14:09 | disposition home or self-care (01) ==
LOC: ANHIMG 14:12
PROVIDERS: PCP Family Medicine; Visit Provider Nurse Practitioner
DX: M25.531 Pain in right wrist (principal)
CPT/HCPCS: 73100

== ENCOUNTER 2024-03-14 14:36 | Outpatient (CLI) | payer OTHER, SELFPAY ==
--- NOTE | ~2024-03-14 | DEXA_ITS ---
Bone Density Report Name: SAAD PA Age: 68 Sex: Female Ethnicity: White Date of : 1955 Indication: postmenopausal; screening for osteoporosis; history of glucocorticoids; hysterectomy; Referring Provider: ORVILLE LUGO Study: Bone densitometry was performed. Exam Date: March 14, 2024 Accession number: [id number] Bone Density: Region BMD T-score Z-score Classification AP Spine(L1-L4) 1.063 0.1 2.0 Normal Femoral Neck (Left) 0.713 -1.2 0.4 Osteopenia Total Hip (Left) 1.031 0.7 2.0 Normal Femoral Neck (Right) 0.783 -0.6 1.0 Normal Total Hip (Right) 1.016 0.6 1.9 Normal Total Hip Mean 1.024 0.7 2.0 Normal World Health Organization criteria for BMD impression classify patients as: Normal (T-score at or above -1.0), Osteopenia (T-score between -1.0 and -2.5), or Osteoporosis (T-score at or below -2.5). 10-year Fracture Risk(1): Major Osteoporotic Fracture 12% Hip Fracture 1.2% Reported Risk Factors: [place] (), Neck BMD=0.713, BMI=40.7, glucocorticoids (1) FRAX(R) Version 3.08. Fracture probability calculated for an untreated patient. Fracture probability may be lower if the patient has received treatment. Clinical Information Provided by Patient: Has taken Glucocorticoids Has used the following medications: Vitamin D Has the following medical conditions: Hysterectomy Patient maximum height was 62.0 Menopause Age: 52 No regular weight bearing exercise Drinks caffeinated beverages Onset of menses at age 16 Number of children 2 Impression: The patient has low bone mass, based on the Left Femoral Neck T-score. The patient has an estimated ten-year risk of hip fracture of 1.2% and an estimated ten-year risk of major fracture of 12%, based on the WHO FRAX algorithm. The patient has risk factors, including: history of glucocorticoid therapy. Discussion: BONE DENSITY IS LOW AT ONE OR MORE SKELETAL SITES. This patient's lowest T-score is low at one or more skeletal sites. It meets the World Health Organization's (WHO) criteria for ?low bone mass? (T-score between -1.0 and -2.5). The patient's 10-year risk of fracture as calculated by FRAX is less than the threshold where pharmacological therapy is recommended by the National Osteoporosis Foundation (NOF). However, all treatment decisions require clinical judgment and consideration of individual patient factors, including patient preferences, comorbidities, previous drug use, risk factors not captured in the FRAX model (e.g., frailty, falls, vitamin D deficiency, increased bone turnover, interval significant decline in bone density) and possible under or overestimation of fracture risk by FRAX. The patient should follow a healthful lifestyle (good nutrition with adequate calcium and vitamin D, and appropriat
--- NOTE | ~2024-03-14 | MM_ITS ---
EXAMINATION: MM screening [facility] BI w jorge l HISTORY: Screening TECHNIQUE: Craniocaudal and mediolateral oblique 3-D tomosynthesis images were obtained and synthetic 2-D images were generated. CAD analysis was submitted and interpreted. COMPARISON: Comparison to multiple prior studies sequentially, with oldest reviewed study dated 07/17. BREAST PARENCHYMAL COMPOSITION: Not Dense. The breasts are almost entirely fatty. FINDINGS: There is no evidence of suspicious mass, calcification, or architectural distortion to sugg est malignancy in either breast. There has been no suspicious interval change. IMPRESSION: 1. No mammographic evidence of malignancy. 2. Recommend routine screening mammography in one year. BI-RADS Category 1: Negative Reviewed, dictated and finalized at location B.
== END 2024-03-14 14:37 | disposition home or self-care (01) ==
LOC: ANHIMG 14:40
PROVIDERS: PCP Family Medicine; Visit Provider Family Medicine
DX: Z12.31 Encounter for screening mammogram for malignant neoplasm of breast (principal); M85.89 Other specified disorders of bone density and structure, multiple sites; Z78.0 Asymptomatic menopausal state; Z13.820 Encounter for screening for osteoporosis
CPT/HCPCS: 77063; 77067; 77080

== ENCOUNTER 2024-08-18 19:32 | Emergency (ER) | payer OTHER, SELFPAY ==
--- NOTE | ~2024-08-18 | XR_ITS ---
CHEST RADIOGRAPH, PA AND LATERAL CLINICAL HISTORY: cough for 3 wks, dizziness x 5 days . COMPARISON: 06/09/2022 TECHNIQUE: PA and lateral views of the chest. FINDINGS The cardiomediastinal silhouette is unremarkable. The lungs are clear. Visualized osseous structures and soft tissues are unremarkable. IMPRESSION: No focal infiltrate or effusion. Reviewed, dictated and finalized at location A. [employer]
--- NOTE | 2024-08-18 19:41 | ED_ITS ---
HPI - Dizziness General Chief Complaint: Dizziness Stated Complaint: light headed/dizziness Time Seen by Provider: 08/18/24 19:41 Source: patient Mode of arrival: ambulatory Limitations: no limitations History of Present Illness HPI Narrative: 68-year-old female presents with complaint of intermittent dizziness for the past week. Patient reports that she is dizzy when laying in bed and when bending over. Patient reports that she had nasal congestion for approximately 2 weeks that have resolved. After nasal congestion resolved it seems like that is when dizziness started. Patient also reports that she has had cough for approximately 3 weeks. Cough is intermittent and most noticeable at night. Denies chest pain and dizziness. No recent changes to medications. Patient reports she has been on phentermine since December and has had a 35 lb weight loss. Does not think that medication is causing her dizziness. Patient is concerned that she may have an ear infection or fluid on her ears causing her dizziness. 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 Has noticed when she bends over to lock wheelchairs on the bus she notices some dizziness. No headache or vision changes. Ambulatory with steady gait. All systems reviewed and negative except as noted above. Related Data Allergies Allergy/AdvReac Type Severity Reaction Status Date / Time Sulfa (Sulfonamide Allergy Severe RASH Verified 08/18/24 19:40 Antibiotics) lisinopril Allergy Unknown cough Verified 08/18/24 19:40 potassium iodide Allergy Unknown cough Verified 08/18/24 19:40 sulfamethizole Allergy Unknown Skin Verified 08/18/24 19:40 Reaction sulfite Allergy Unknown rash Verified 07/05/24 08:21 Review of Systems Review of Systems: CONSTITUTIONAL: Denies fever, chills, or sweats. EYES: Denies visual changes, redness, or discharge. ENT: Denies rhinorrhea, congestion, sore throat, or otalgia. CARDIOVASCULAR: Denies chest pain, palpitations, or edema. RESPIRATORY: Reports cough. Denies dyspnea. GASTROINTESTINAL: Denies abdominal pain, nausea, vomiting, or diarrhea. GENITOURINARY: Denies dysuria or hematuria. SKIN: Denies rash or itching. MUSCULOSKELETAL: Denies back pain, joint pain, or myalgia. NEUROLOGIC: Denies headache, numbness, or weakness. Reports dizziness. PSYCHIATRIC: Denies anxiety or depression. All other systems reviewed are negative, except as documented in HPI. PMF Past Medical History Medical History Other hyperlipidemia YEN (obstructive sleep apnea) Dupuytren's contracture of hand Arthritis of hand, left, degenerative Trigger finger, left middle finger Essential (primary) hypertension Mixed hyperglyceridemia Type 2 diabetes mellitus with complication, without long-term current use of insulin Surgical History Surgical History H/O section 1989 Family History Family History Father Family history of cardiovascular disease Other Family history of malignant neoplasm Social History Social History Smoking packs per day: 1 Smoking cigarettes per day: 20.0 Years smoked: 20 Smoking pack-years: 20.00 Smoking status: Former smoker Smoking end date: 08/16/94 Alcohol intake: never Substance use: never Substance use type: does not use Do You Feel Safe in your Home?: Yes Lack of Transportation: No Lack of Food: Never True Current Housing: I Have Housing Concerned About Future Housing: No Difficulty Paying Gas/Electric Bills: No Difficulty Paying for Meds: No Currently Unemployed: No Education: High School Diploma/GED Difficulty w/ Childcare or Family Care: No Living arrangements: with family Occupation/Education: occupation Gender identity (if verbalized by the patient): Female Spiritual care concerns: No Comments At time of signature, agree with nursing past medical, surgical, social and family history. There is no relevant family history pertinent to the presenting complaint. Exam Narrative: GENERAL: This is a well-nourished, well-developed patient, in no apparent distress. HEAD: normocephalic, atraumatic. EYES: PERRL. Sclera clear/white. Vision is grossly intact. EARS: External ears normal, auditory canals clear and without drainage, clear fluid bilateral TMs with air bubbles. No erythema or perforation bilaterally. NOSE: External nose normal with no obvious nasal discharge, nares without redness, no rhinorrhea. THROAT: Mucous membranes moist, posterior pharynx clear. NECK: Neck supple, non-tender without lymphadenopathy, masses or thyromegaly. CARDIOVASCULAR: Regular rate and rhythm without murmurs, gallops, or rubs. RESPIRATORY: Wheezing to right upper lung field otherwise clear Breath sounds equal bilaterally. No rales, or rhonchi. SKIN: warm, Dry, intact with no suspicious lesions or rash, good texture and turgor. NEURO: awake, alert, and oriented to person, place and time. There were no obvious focal neurologic abnormalities. EXTREMITIES: No joint tenderness, effusion, or edema noted. No calf tenderness. Negative Homans sign bilaterally. BACK: Nontender without deformity. No CVA tenderness. Course Course Level of Care: [facility] Visit Vital Signs Vital signs: Vital Signs Temperature 36.8 C 08/18/24 19:44 Pulse Rate 87 08/18/24 19:44 Respiratory Rate 16 08/18/24 19:44 Blood Pressure 139/81 08/18/24 19:44 Pulse Oximetry 96 08/18/24 19:44 Temperature 36.8 C 08/18/24 19:44 Pulse Rate 87 08/18/24 19:44 Respiratory Rate 16 08/18/24 19:44 Blood Pressure 139/81 08/18/24 19:44 Pulse Oximetry 96 08/18/24 19:44 Reviewed MDM - Dizziness MDM Narrative Medical decision making narrative: Patient is well-appearing, nontoxic. Has not experienced dizziness while at [facility]. She is alert and oriented. Ambulatory with steady gait. Denies nausea vomiting. No chest pain or shortness of breath. Chest x-ray negative for pneumonia. Will treat for bronchitis with prednisone and albuterol due to duration of cough with mild wheeze. Will treat fluid on air with antihistamine, Flonase. Recommend follow-up with primary care physician. Patient is aware of diagnosis, understands and agrees to treatment plan. Anticipatory guidance given. Patient agrees to follow-up as directed and is aware of reasons to seek care at the emergency department. Portions of this record may have been created with voice recognition software Imaging Data My impression: agree with radiologist Radiologist's impression: CHEST RADIOGRAPH, PA AND LATERAL CLINICAL HISTORY: cough for 3 wks, dizziness x 5 days . COMPARISON: 06/09/2022 TECHNIQUE: PA and lateral views of the chest. FINDINGS The cardiomediastinal silhouette is unremarkable. The lungs are clear. Visualized osseous structures and soft tissues are unremarkable. IMPRESSION: No focal infiltrate or effusion. Discharge Plan Discharge Clinical Impression: Vertigo, Acute serous otitis media of both ears, Acute bronchitis Patient Disposition: Home, Self-Care Condition: Stable Instructions: Antibiotic Form, Vertigo (ED), Acute Bronchitis (ED) Additional Instructions: Your chest x-ray was normal today. Take medications as prescribed. Drink at least 64 oz of water a day. Follow-up with your primary care physician if symptoms are not improving. For any worsening of your symptoms go to the ER. Patient Language: [place] Prescriptions: New prednisone 20 mg tablet 40 mg PO DAILY 5 Days Qty: 10 0RF albuterol sulfate 90 mcg/actuation HFA aerosol inhaler 2 puff inhalation Q4-6H PRN (Reason: shortness of breath or wheezing) Qty: 8.5 0RF fluticasone propionate [Flonase Allergy Relief] 50 mcg/actuation spray,suspension 1 spray intranasal BID Qty: 16 0RF Rx Instructions: administer into each nostril loratadine [Claritin] 10 mg tablet 10 mg PO DAILY Qty: 30 0RF (DME) Aerochamber Plus Z Stat Spacer See Rx Instructions .Route Qty: 1 0RF Rx Instructions: As directed meclizine 25 mg tablet 25 mg PO Q6-8H PRN (Reason: dizziness) Qty: 30 0RF No Action losartan 100 mg tablet 100 mg PO DAILY Qty: 90 1RF atorvastatin 40 mg tablet 40 mg PO DAILY Qty: 90 1RF phentermine 37.5 mg tablet 37.5 mg PO DAILY Qty: 30 2RF Rx Instructions: must administer 30 minutes before or 1-2 hours after breakfast atorvastatin 40 mg tablet 40 mg PO DAILY Qty: 30 0RF losartan 100 mg tablet 100 mg PO DAILY Qty: 30 0RF metformin 500 mg tablet 500 mg PO BID Qty: 60 0RF Follow-up/Referrals: Sri Aleman DO [Primary Care Provider] - Time of Disposition: 20:28
[2024-08-18 19:44] VITALS: BP 139/81; PULSE 87; RESP 16; TEMP 36.8; O2SAT 96
== END 2024-08-18 20:32 | disposition home or self-care (01) ==
PROVIDERS: Emergency Provider Nurse Practitioner Family; PCP Family Medicine
DX: H65.03 Acute serous otitis media, bilateral (principal); J20.9 Acute bronchitis, unspecified; M72.0 Palmar fascial fibromatosis [Dupuytren]; M19.042 Primary osteoarthritis, left hand; I10 Essential (primary) hypertension; E78.3 Hyperchylomicronemia; E11.9 Type 2 diabetes mellitus without complications; Z87.891 Personal history of nicotine dependence
CPT/HCPCS: 71046; 99213; G0463

== ENCOUNTER 2024-09-07 09:35 | Outpatient (CLI) | payer OTHER, SELFPAY ==
--- OUTSIDE RECORDS SUMMARY | 2024-08-25 19:16 | XMS_ITS | Patient Health Record ---
Author Organization [facility] Address [address] [place] [address] Care Team Providers Care Independent Sales Representative Name Role Phone Lukas Bowling Primary Care Provider Reason For Referral No Information Immunizations Vaccine Route Administration Date Status Comme nts COVID-19 Moderna 2nd IM Intramuscular 10/24/2020 Administered COVID-19 Moderna 1ST IM Intramuscular 09/26/2020 Administered EUA date 0. Screening reviewed and consent signed. Patient tolerated well. Plan Of Treatment No Information Insurance Providers Payer Name Payer Address Payer Phone Subscriber Number Group Number Insured Name Patient Relationship to Insured Coverage Start Date Coverage End Date [facility] [address] [place] [address] [id number] Fide Randall Self - patient is the insured 1
[2024-10-05 09:21] VITALS: BMI 39.3
--- NOTE | 2024-10-05 09:21 | WPDSLEEPSTUD ---
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 * 07/07/2022 BiPAP titration with optimal pressure 17/12 and 1 L/min O2 Sleep History Fide Randall is a 69-year-old female who was diagnosed with obstructive sleep apnea, had a BiPAP titration 07/07/2022 with optimal pressure of 17/12 with 1 L/minute oxygen. She has not worn her device for several months. She told her primary care doctor that BPAP was not benefiting her, she has lost weight since her initial sleep study and no longer snores. Her BMI was 43.9 in 2021, and now her BMI is 39.3. She has lost 11.3 kg /25 pounds since her last sleep study. She says that she sleeps well at night and actually wants to stop using BiPAP. She has no additional problems with her sleep. Dr. Aleman requests re-testing. The patient indicates that she never awakens from sleep feeling short of breath, she never awakens at night with heartburn, belching or coughing and she never snores. No one ever tells her that she snores. She does not have difficulty sleeping when she has a cold, she does not wake up gasping for breath at night, does not sweat excessively at night or notice her heart pounding or beating irregularly at night. She does not fall asleep during the day, does not fall asleep involuntarily or while driving. She does not have loss of muscle tone with strong emotion. She does not have daytime difficulties due to excessive sleepiness, she is a retail delivery driver. She does not feel paralyzed on waking or falling asleep. She does not have vivid dreamlike scenes upon awakening or falling asleep. She does not feel afraid to go to sleep. She does not have nightmares. She occasionally remembers her dreams, occasionally has racing thoughts. She rarely feels sad, depressed, or anxious. She does not have muscular tension, does not notice parts of her body jerking nor does she kick at night. She occasionally has crawling and aching feelings in her legs. She occasionally has leg pain during the night. She never has morning jaw pain. She does not grind her teeth during sleep. She rarely is bothered by pain during the day, rarely awakened by pain during the night and rarely wakes up feeling stiff in the morning. She does not awaken with sore achy muscles nor does she wake with pain in the neck and spine. Her normal bedtime is 9:00 p.m., falling asleep within 10 minutes, typically waking 3 times at night to urinate, returning to sleep within 5 minutes. Her normal wake time is 6:00 a.m.. On weekends, bedtime is 11:00 p.m. and wake time is 8:00 a.m.. She estimates getting 8 hours of sleep most nights. She does not take naps in the afternoon or evening. A short nap lasting 10-15 minutes is not refreshing. She feels better in the morning compared to other times of day. Habits: Tobacco: quit years ago Caffeine: 1-2 servings of tea daily Alcohol: none Recreational substances: none PMFSH Past Medical History Medical History Other hyperlipidemia YEN (obstructive sleep apnea) Dupuytren's contracture of hand Arthritis of hand, left, degenerative Trigger finger, left middle finger Essential (primary) hypertension Mixed hyperglyceridemia Type 2 diabetes mellitus with complication, without long-term current use of insulin Surgical History Surgical History H/O section 1989 Family History Family History Father Family history of cardiovascular disease Other Family history of malignant neoplasm Social History Social History Smoking packs per day: 1 Smoking cigarettes per day: 20.0 Years smoked: 20 Smoking pack-years: 20.00 Smoking status: Former smoker Smoking end date: 08/16/94 Alcohol intake: never Substance use: never Substance use type: does not use Do You Feel Safe in your Home?: Yes Lack of Transportation: No Lack of Food: Never True Current Housing: I Have Housing Concerned About Future Housing: No Difficulty Paying Gas/Electric Bills: No Difficulty Paying for Meds: No Currently Unemployed: No Education: High School Diploma/GED Difficulty w/ Childcare or Family Care: No Living arrangements: with family Occupation/Education: occupation Gender identity (if verbalized by the patient): Female Spiritual care concerns: No Medications Home Medications ?Medication ?Instructions ?Recorded ?Confirmed ?Type losartan 100 mg tablet 100 mg PO DAILY #90 tabs 04/19/24 08/31/24 Rx atorvastatin 40 mg tablet 40 mg PO DAILY #90 tabs 04/24/24 08/31/24 Rx phentermine 37.5 mg tablet 37.5 mg PO DAILY #30 tabs 06/27/24 08/31/24 Rx atorvastatin 40 mg tablet 40 mg PO DAILY #30 tabs 08/02/24 08/31/24 Rx losartan 100 mg tablet 100 mg PO DAILY #30 tabs 08/02/24 08/31/24 Rx metformin 500 mg tablet 500 mg PO BID #60 tabs 08/02/24 08/31/24 Rx albuterol sulfate 90 mcg/actuation 2 puff inhalation Q4-6H PRN 08/18/24 08/31/24 Rx aerosol inhaler shortness of breath or wheezing #8.5 grams fluticasone propionate 50 1 spray intranasal BID #16 grams 08/18/24 08/31/24 Rx mcg/actuation nasal spray,suspension (Flonase Allergy Relief) inhalational spacing device #1 ea 08/18/24 08/31/24 Rx (Aerochamber Plus Z Stat spacer) loratadine 10 mg tablet (Claritin) 10 mg PO DAILY #30 tabs 08/18/24 08/31/24 Rx meclizine 25 mg tablet 25 mg PO Q6-8H PRN dizziness #30 08/18/24 08/31/24 Rx tabs prednisone 20 mg tablet 40 mg (2 x 20 mg) PO DAILY 5 days 08/18/24 08/31/24 Rx #10 tabs Sleep Procedure A split night polysomnogram using the [employer] multi-channel system recorded the standard physiologic parameters including EEG, EOG, submentalis EMG, anterior tibialis EMG, EKG, body position, nasal and oral airflow using nasal pressure sensor and thermistor. Respiratory parameters of chest and abdominal movements were recorded with Respiratory Inductance Plethysmography belts. Oxygen saturation was recorded by pulse oximetry. Video monitoring was also performed. Sleep stages, periodic limb movements, and EEG arousals were scored in 30 second epochs according to the criteria of the AASM Scoring Manual. The Apnea-Hypopnea Index was calculated using CMS guidelines for definition of hypopnea while scoring respiratory events. The patient self-administered Lunesta 2 mg at the beginning of the study. 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 She used a medium ResMed AirFit F20 fullface mask with heated humidity, initial pressure was 5 cm, titrated to CPAP 7 cm, CPAP 9 cm, CPAP 11 cm, CPAP 13 cm, CPAP 15 cm, CPAP 17 cm and BiPAP 18/14. She did not require oxygen during the study. At a pressure of CPAP 15 cm, the patient spent 28.5 minutes in bed, 0.5 minutes awake, 2.5 minutes in non-REM and 25.5 minutes in REM. The sleep efficiency was 98.2%. The residual apnea-hypopnea index was 2.1 and the average saturation was 92.5%. The patient had supine REM at this setting. This is the optimal setting. The patient had limb movements occurring in the final 3rd of the night however these did not cause significant arousals. Sleep Architecture During the diagnostic portion of the study, the total recording time was 172.8 minutes. The total sleep time was 153.0 minutes. Sleep latency was 8.3 minutes. REM latency was 114.5 minutes. Sleep Efficiency was 88.6%. The patient had 5 awakenings for an awakening index of 2.0. Wake after sleep onset time was 11.5 minutes. The patient spent 2.5 minutes, 1.6% of total sleep time in Stage N1. The patient spent 55.0 minutes, 35.9% in Stage N2. The patient spent 73.0 minutes, 47.7% in Stage N3. The patient spent 22.5 minutes, 14.7% in Stage REM sleep. At 01:20:10 AM the patient was placed on PAP treatment and was titrated at pressures ranging from CPAP 5 cm, 7, 9, 11, 13, 15, 17 cm, and BiPAP 18/14. Supplemental O2 was not required. During the treatment portion of the study, the total recording time was 310.2 minutes. The total sleep time was 293.0 minutes. Sleep latency was 5.0 minutes. REM latency was 87.5 minutes. Sleep Efficiency was 94.4%. Wake after Sleep Onset time was 12.5 minutes. The patient spent 11.0 minutes, 3.8% of total sleep time in Stage N1. The patient spent 215.0 minutes, 73.4% in Stage N2. The patient spent 1.0 minutes, 0.3% in Stage N3. The patient spent 66.0 minutes, 22.5% in Stage REM. Respiratory Analysis During the diagnostic portion of the study, the patient had 28 hypopneas, no obstructive/ mixed/ central apneas for an overall Apnea Hypopnea Index of 11.0 events per hour. The REM Apnea Hypopnea Index was 53.3. The NREM Apnea Hypopnea Index was 5.1. The patient had a Central Apnea Hypopnea Index of 0. There were no Respiratory Effort Related Arousals. The Respiratory Disturbance Index is 12.9 events per hour. There was no evidence of Kavon-Harley Respirations. During the treatment portion of the study, the patient had 44 hypopneas, 26 obstructive apneas, no mixed apneas, and no central apneas for an overall Apnea Hypopnea Index of 14.3 events per hour. The REM Apnea Hypopnea Index was 29.1. The NREM Apnea Hypopnea Index was 10.0. The patient had a Central Apnea Hypopnea Index of 0. There were no Respiratory Effort Related Arousals. The Respiratory Disturbance Index is 21.5 events per hour. There was no evidence of Kavon-Harley Respirations. Arousals During the diagnostic portion of the study, there were a total of 8 arousals for an arousal index of 3.1. There were 1 respiratory arousals for an index of 0.4. There were no periodic limb movement arousals or isolated limb movement arousals. There were 7 spontaneous arousals for an index of 2.7. During the treatment portion of the study, there were a total of 69 arousals for an index of 14.1. There were 8 respiratory arousals for an index of 1.6. There were 35 periodic limb movement arousals for an index of 7.2. There were 4 isolated limb movement arousals for an index of 0.8. There were 22 spontaneous arousals for an index of 4.5. Periodic Limb Movements During the diagnostic portion of the study, the patient had 2 isolated limb movements with an index of 0.8. The patient had no periodic limb movements. The patient had a total of 2 limb movements with a total limb movement index of 0.8. During the treatment portion of the study, the patient had 17 isolated limb movements with an index of 3.5. The patient had 263 periodic limb movements with an index of 53.9. The patient had a total of 280 limb movements with a total limb movement index of 57.3. Oximetry Data During the diagnostic portion of the study, the patient had an average oxygen saturation of 92% in wake with a minimum oxygen saturation of 86% and a maximum oxygen saturation of 97%. The patient had an average oxygen saturation of 89.2% in sleep with a minimum oxygen saturation of 71% and a maximum oxygen saturation of 98%. The patient had 40 oxygen desaturations resulting in an Oxygen Desaturation Index of 15.7. The patient spent 43 minutes, 25.6% of total sleep time with an oxygen saturation less than 88%. During the treatment portion of the study, the patient had an average oxygen saturation of 92.2% in wake with a minimum oxygen saturation of 68% and a maximum oxygen saturation of 98%. The patient had an average oxygen saturation of 91% in sleep with a minimum oxygen saturation of 66% and a maximum oxygen saturation of 98%. The patient had 115 oxygen desaturations resulting in an Oxygen Desaturation Index of 23.5. The patient spent 35.9 minutes, 11.6% of total sleep time with an oxygen saturation less than 88%. Snoring Profile Snoring was mild during the baseline, eliminated during the titration. Cardiac Profile During the diagnostic portion of the study, the EKG showed normal sinus rhythm. The average pulse rate was 68 bpm, minimum pulse rate was 53 bpm, and the maximum pulse rate was 99 bpm. No arrhythmias noted. During the treatment portion of the study, the EKG showed normal sinus rhythm. The average pulse rate was 55 bpm, minimum pulse rate was 48 bpm, and the maximum pulse rate was 90 bpm. No arrhythmias noted. EEG Profile EEG was unremarkable, no evidence of seizures. Assessment and Plan Assessment and Plan (1) Obstructive sleep apnea: Code(s): G47.33 - Obstructive sleep apnea (adult) (pediatric) Status: Acute Assessment and Plan: This split night sleep study on 09/07/2024 shows mild obstructive sleep apnea with significant hypoxemia. The apnea-hypopnea index was 11 with desaturation to 71% in 43 minutes, 25.6% of this time spent below 88%. During the titration, she used a medium ResMed AirFit F20 fullface mask with heated humidity and the optimal pressure was CPAP 15 cm. At this pressure the apnea-hypopnea index was 2.1 and hypoxemia was eliminated. The minimum saturation was 88%, average saturation 92.5%. CPAP 15 cm without supplemental oxygen is the optimal pressure. The patient should be prescribed this ResMed equipment as well as tubing, filters and reservoir. This should be used with all episodes of sleep. Compliance should be reviewed within 31-90 days of starting therapy for usage greater than 4 hours per night greater than 70% of the nights. The patient should be asked about symptoms such as excessive daytime sleepiness, quality of sleep, decreased nocturia, increased mental functioning such as memory, mood, and concentration. BMI is 39. Weight management is advised. Clinical data suggests that weight loss of 10% can reduce the severity of respiratory events and snoring and improve AHI by as much as 25%. Data The data obtained during this sleep study is adequate for interpretation. Certification This sleep study has been reviewed by a board certified sleep medicine physician.
== END 2024-09-08 07:11 | disposition home or self-care (01) ==
PROVIDERS: PCP Family Medicine; Visit Provider Family Medicine
DX: G47.33 Obstructive sleep apnea (adult) (pediatric) (principal)
CPT/HCPCS: 95811